=== PATIENT | female | born 1980 | race Caucasian/White ===

== ENCOUNTER 2017-03-12 08:56 | Emergency (ER) | payer OTHER ==
[~2017-03-12] VITALS: Ht 162.6 cm; Wt 67.1 kg
[~2017-03-12 08:56] MED LIST: BENTYL10 MG PO; Protonix40 MG PO; Zofran Odt4 MG PO
[2017-03-12] MEDS ORDERED: PERIDEX15 ML MM (09:23)
[2017-03-12] MEDS ORDERED: Augmentin 875-1 EACH PO (09:23)
[2017-03-12] MEDS ORDERED: Naprosyn500 MG PO (09:23)
== END 2017-03-12 09:40 | disposition home or self-care (01) ==
LOC: ER 08:56
DX: K04.7 Periapical abscess without sinus (principal); Z88.5 Allergy status to narcotic agent; Z79.899 Other long term (current) drug therapy; Z79.2 Long term (current) use of antibiotics; Z87.891 Personal history of nicotine dependence
CPT/HCPCS: 99283

== ENCOUNTER → 2017-04-09 | Outpatient (CLI) | payer OTHER ==
[~2017-04-09] MED LIST changes: +Augmentin 875-1 EACH PO; +Naprosyn500 MG PO; +PERIDEX15 ML MM
== END ==
LOC: LAB 13:12
DX: N64.52 Nipple discharge (principal)
CPT/HCPCS: 87070; 87075; 87205